=== PATIENT | female | born 1980 | race Hispanic/Latino ===

== ENCOUNTER 2017-10-18 22:54 | Emergency (ER) | payer BC, MEDICAID, OTHER ==
[2017-10-18] MEDS ORDERED: ACETAMINOPHEN EXTRA STRENGTH 500 MG TABLET ONE (23:39)
[2017-10-18] MEDS ORDERED: CYCLOBENZAPRINE HCL 10 MG TABLET ONE (23:40)
[2017-10-19] MEDS ORDERED: IBUPROFEN 600 MG TABLET ONE (00:14)
== END 2017-10-19 01:22 | disposition home or self-care (01) ==
LOC: EDH 22:54
DX: S39.012A Strain of muscle, fascia and tendon of lower back, initial encounter (principal); Z98.890 Other specified postprocedural states; X50.9XXA Other and unspecified overexertion or strenuous movements or postures, initial encounter; Y93.89 Activity, other specified; Y92.89 Other specified places as the place of occurrence of the external cause; Y99.8 Other external cause status
CPT/HCPCS: 81025

== ENCOUNTER 2017-11-20 16:29 | Emergency (ER) | payer BC, OTHER ==
[2017-11-20] MEDS ORDERED: IBUPROFEN 600 MG TABLET ONE (17:20)
[2017-11-20] MEDS ORDERED: CYCLOBENZAPRINE HCL 10 MG TABLET ONE (17:21)
== END 2017-11-20 17:58 | disposition home or self-care (01) ==
LOC: EDH 16:29
DX: S39.82XA Other specified injuries of lower back, initial encounter (principal); M62.830 Muscle spasm of back; V59.49XA Driver of pick-up truck or van injured in collision with other motor vehicles in traffic accident, initial encounter; Y93.89 Activity, other specified; Y92.89 Other specified places as the place of occurrence of the external cause; Y99.8 Other external cause status
CPT/HCPCS: 72100; 81025

== ENCOUNTER 2018-04-29 09:03 | Emergency (ER) | payer BC, OTHER | END 2018-04-29 10:12 | disposition home or self-care (01) | LOC: EDH 09:03 | DX: T81.30XA Disruption of wound, unspecified, initial encounter (principal); K91.872 Postprocedural seroma of a digestive system organ or structure following a digestive system procedure; Z98.890 Other specified postprocedural states | CPT/HCPCS: 99281 ==

== ENCOUNTER → 2019-03-10 | Outpatient (CLI) | payer BC | END | disposition home or self-care (01) | LOC: RAH 08:52 | PROVIDERS: ATTEND Family Medicine | DX: N28.1 Cyst of kidney, acquired (principal); R19.01 Right upper quadrant abdominal swelling, mass and lump | CPT/HCPCS: 76700 ==

== ENCOUNTER 2021-09-19 13:47 | Emergency (ER) | payer BC, MEDICAID ==
[~2021-09-19] VITALS: Ht 165.1 cm; Wt 88.9 kg
[2021-09-19 15:06] VITALS: BP 142/90
== END 2021-09-19 15:16 | disposition left against medical advice (07) ==
LOC: EDH 13:47
DX: R10.9 Unspecified abdominal pain (principal); Z53.21 Procedure and treatment not carried out due to patient leaving prior to being seen by health care provider